=== PATIENT | female | born 1955 | race Caucasian/White ===

== ENCOUNTER 2016-11-29 15:12 | Emergency (ER) | payer MEDICARE ==
[2016-11-29 17:12] LABS: HEMOGLOBIN 14.1 gm/dl (12.3-15.3); RED BLOOD COUNT 4.55 M/UL (4.00-5.10); WHITE BLOOD COUNT 4.7 K/UL (4.5-11.0)
[2016-11-29 17:30] LABS: BUN/CREATININE RATIO 32 (0-10)
== END 2016-11-29 19:38 | disposition home or self-care (01) ==
LOC: ER1 15:12
PROVIDERS: Emergency Medicine
DX: M79.1 Myalgia (principal); E11.9 Type 2 diabetes mellitus without complications; Z79.899 Other long term (current) drug therapy
CPT/HCPCS: 36415; 80053; 82550; 83690; 83874; 85025; 99283

== ENCOUNTER → 2022-01-06 | Outpatient (CLI) | payer MEDICARE, OTHER ==
[~2022-01-06] MED LIST: CIPRO500 MG PO; MILK OF MAGNESI30 ML PO; ZOFRAN4 MG PO
== END ==
LOC: CT 12:16
DX: R55 Syncope and collapse (principal); R51.9 Headache, unspecified; R40.4 Transient alteration of awareness; Z13.6 Encounter for screening for cardiovascular disorders
CPT/HCPCS: 70470; 93880; Q9967